=== PATIENT | male | born 1950 | race Caucasian/White ===

== ENCOUNTER 2018-01-22 23:03 | Observation (INO) ==
[2018-01-22] MEDS ORDERED: 0.9 % Sodium Chloride 500 ML IVC ONE (23:12)
[2018-01-22] MEDS ORDERED: Nitroglycerin 0.4 MG TAB.SUBL SL PRN (23:16)
--- NOTE | 2018-01-22 23:16 | Emergency Department Note ---
Disposition Clinical Impression: Atrial fibrillation with RVR Chest pain Qualifiers: Chest pain type: chest pain due to myocardial ischemia Ischemic chest pain type: unstable angina pectoris Qualified Code(s): I20.0 - Unstable angina Disposition: Admitted As Inpatient Condition: Fair Time of Disposition: 00:30 Chest Pain HPI - General Chief Complaint: ED Chest Pain Stated Complaint: CP Time Seen by Provider: 01/22/18 23:12 Source: patient, family Mode of arrival: wheelchair Limitations: no limitations Vital Signs Reviewed: Yes Nursing Notes Reviewed: Yes - History of Present Illness HPI Narrative: 67-year-old male penis for evaluation of chest pain. Patient does have a history of hypertension, diabetes, A. fib as well as CAD with multiple stents. Patient states he developed retrosternal chest pain with radiation to his left shoulder that occurred 2100 this evening. Following that the patient noted that he went into A. fib. Patient states that he does have known A. fib. Notes some diaphoresis initially. No nausea or vomiting. States his symptoms to prior with his heart attacks in the past. Patient denies any fevers or cough. States he is on Eliquis. States he took 3 nitroglycerin prior to arrival and did not improve his pain. Severity scale (1-10): 6 - Related Data Home Medications Medication Instructions Recorded Confirmed Losartan [Cozaar] 25 mg PO DAILY 02/14/15 01/23/18 Metoprolol [Lopressor] 50 mg PO BID 02/14/15 01/23/18 Omeprazole [PriLOSEC] 20 mg PO HS 02/14/15 01/23/18 Pregabalin [Lyrica] 225 mg PO BID 02/14/15 01/23/18 Rosuvastatin [Crestor] 40 mg PO HS 02/14/15 01/23/18 TraMADol [Ultram] 50 mg PO TID 02/14/15 01/23/18 Loratadine 10 mg PO DAILY 05/14/15 01/23/18 Multivitamin 1 tab PO DAILY 05/14/15 01/23/18 Apixaban [Eliquis] 2.5 mg PO BID 01/23/18 01/23/18 Lantus 44 units SQ QAM 01/23/18 01/23/18 Previous Rx's Medication Instructions Recorded Clopidogrel [Plavix] 75 mg PO DAILY #30 tablet 02/17/15 Allergies Allergy/AdvReac Type Severity Reaction Status Date / Time glipizide AdvReac Gastrointestinal Verified 05/14/15 09:57 Upset isosorbide AdvReac Gastrointestinal Verified 05/14/15 09:57 Upset metformin AdvReac Gastrointestinal Verified 05/14/15 09:57 Upset All systems ED: reviewed and negative except as stated. Constitutional: Denies: fever Cardiovascular: Reports: chest pain, palpitations Respiratory: Denies: cough, dyspnea Gastrointestinal: Denies: abdominal pain, nausea, vomiting, diarrhea Chest Pain PMH - Past Medical History Medical history: Reports: arthritis, coronary artery disease, diabetes, GERD, hyperlipidemia, hypertension, myocardial infarction Surgical history: Reports: angioplasty/stent (PCI w/ & stents total; [facility] catheterizations, multiple), arthroscopy (bilateral shoulders), orthopedic, other, vasectomy, other (dental surgery) Psychiatric history: Reports: no psych history - Social History Smoking Status: Former smoker Alcohol use: Reports: none Drug use: Reports: none Physical Exam - General Limitations: no limitations General appearance: alert, other (Appears uncomfortable) - Head Head exam: atraumatic, normocephalic, normal inspection - Eye Eye exam: Present: normal appearance, PERRL, EOMI - ENT ENT exam: normal exam, normal oropharynx, mucous membranes moist - Neck Neck exam: Present: normal inspection - Chest Chest inspection: Present: normal inspection, symmetric chest wall rise - Respiratory Respiratory exam: Present: normal lung sounds bilaterally. Absent: respiratory distress - Cardiovascular Cardiovascular exam: Present: tachycardia, irregular rhythm. Absent: systolic murmur - Abdominal Exam Abdominal exam: Present: soft, Non-Tender - Extremities Exam Extremities exam: Present: normal inspection. Absent: pedal edema - Expanded Lower Extremity Exam Neurovascular/Tendon exam: Present: normal capillary refill - Back Exam Back exam: Present: normal inspection - Neurological Exam Neurological exam: Present: alert, oriented X3 - Skin Skin exam: Present: warm, dry, intact, normal color Course Course Narrative: Patient seen and examined. Patient appears to be in A. fib RVR with a heart rate in the 160s. Patient's blood pressure stable. Patient will be evaluated with basic labs, chest x-ray EKG troponin. Patient will be rate controlled with diltiazem. Disposition admission. - Reevaluation(s) Reevaluation #1: Patient seen and examined. Patient's heart rate is improving. Still continue to be irregular at a rate of 110. Patient did receive one nitroglycerin. States his pain is a 1 out of 10. Patient's resting comfortably. Vital stable. Awaiting troponin. Time: 00:04 Reevaluation #2: Repeat EKG shows A. fib RVR rate of 131. Patient does have T-wave inversions in aVR. ST depressions from prior EKGs have resolved. No ST elevation. Time: 00:06 Reevaluation #3: Repeat EKG shows normal sinus rhythm at a rate of 93. Normal axis Time: 00:08 Vital Signs Temperature 98.5 F 01/22/18 23:05 Pulse Rate 160 01/22/18 23:05 Respiratory Rate 26 01/22/18 23:05 Blood Pressure 138/104 01/22/18 23:05 O2 Sat by Pulse Oximetry 100 01/22/18 23:05 Temperature 98.5 F 01/22/18 23:05 Pulse Rate 94 01/23/18 00:17 Respiratory Rate 18 01/23/18 00:17 Blood Pressure 111/82 01/23/18 00:17 O2 Sat by Pulse Oximetry 99 01/23/18 00:17 Oxygen Delivery Oxygen Delivery Nasal Cannula Chest Pain - [facility] Narrative Medical decision making narrative: Patient presents for evaluation of chest pain and A. fib. Patient does have known A. fib on Eliquis. Does have known coronary artery disease. Patient's triage vitals showed A. fib RVR and heart rate in the 160s. Patient was given Cardizem in improvement of his heart rate as well as chest pain. Patient also received 1 nitroglycerin. Patient got relief with interventions provided. Patient had labs which shows no significant acute clinical abnormalities. Patient is already anticoagulated on Eliquis. Patient will be admitted to the hospital service for continued cardiopulmonary monitoring and evaluation. Patient will control with that plan of care. - Lab Data Lab results reviewed: Yes I reviewed the patient's lab results. Result diagrams: 01/23/18 04:55 01/23/18 04:55 Lab Results 01/22/18 01/22/18 01/22/18 Range/Units 23:12 23:12 23:15 WBC 8.6 (4.3-11.1) K/mcL RBC 5.23 (4.19-5.50) M/mcL Hgb 15.4 (12.9-16.9) g/dL Hct 45.0 (37.5-50.1) % MCV 86.0 (83.0-100.0) fL MCH 29.4 (28.0-33.3) pg MCHC 34.2 (31.6-35.5) g/dL RDW 12.7 (11.5-14.5) % Plt Count 151 (140-400) K/mcL MPV 11.3 (9.4-12.4) fL Immature Gran % 0.2 (0-4) % Seg Neutrophils % 50.3 % Lymphocytes % 38.1 % Monocytes % 8.7 % Eosinophils % 2.0 % Basophils % 0.7 % Neutrophils # 4.3 (1.6-8.9) K/mcL Lymphocytes # 3.3 (0.6-4.6) K/mcL Monocytes # 0.7 (0.0-1.3) K/mcL Eosinophils # 0.2 (0.0-0.6) K/mcL Basophils # 0.1 (0.0-0.2) K/mcL PT 11.6 (9.4-12.1) Seconds INR 1.0 APTT 40.1 H (26.0-36.0) Seconds Sodium (136-145) mEq/L Potassium (3.5-5.1) mEq/L Chloride (98-107) mEq/L Carbon Dioxide (23-29) mEq/L BUN (8-23) mg/dL Creatinine (0.70-1.30) mg/dL Est GFR ( Amer) (> 60) Est GFR (Non-Af Amer) (> 60) BUN/Creatinine Ratio (6-26) Glucose (70-105) mg/dL Calculated Osmolality (280-300) Calcium (8.6-10.3) mg/dL Phosphorus (2.7-4.5) mg/dL Magnesium (1.6-2.6) mg/dL Troponin I (< 0.04) ng/mL B-Natriuretic Peptide 35 (Less than 100) pg/mL 01/22/18 Range/Units 23:22 WBC (4.3-11.1) K/mcL RBC (4.19-5.50) M/mcL Hgb (12.9-16.9) g/dL Hct (37.5-50.1) % MCV (83.0-100.0) fL MCH (28.0-33.3) pg MCHC (31.6-35.5) g/dL RDW (11.5-14.5) % Plt Count (140-400) K/mcL MPV (9.4-12.4) fL Immature Gran % (0-4) % Seg Neutrophils % % Lymphocytes % % Monocytes % % Eosinophils % % Basophils % % Neutrophils # (1.6-8.9) K/mcL Lymphocytes # (0.6-4.6) K/mcL Monocytes # (0.0-1.3) K/mcL Eosinophils # (0.0-0.6) K/mcL Basophils # (0.0-0.2) K/mcL PT (9.4-12.1) Seconds INR APTT (26.0-36.0) Seconds Sodium 140 (136-145) mEq/L Potassium 3.9 (3.5-5.1) mEq/L Chloride 102 (98-107) mEq/L Carbon Dioxide 28 (23-29) mEq/L BUN 11 (8-23) mg/dL Creatinine 1.20 (0.70-1.30) mg/dL Est GFR ( Amer) > 60 (> 60) Est GFR (Non-Af Amer) > 60 (> 60) BUN/Creatinine Ratio 9 (6-26) Glucose 297 H (70-105) mg/dL Calculated Osmolality 300 (280-300) Calcium 10.0 (8.6-10.3) mg/dL Phosphorus 2.0 L (2.7-4.5) mg/dL Magnesium 2.1 (1.6-2.6) mg/dL Troponin I < 0.03 (< 0.04) ng/mL B-Natriuretic Peptide (Less than 100) pg/mL - Radiology Data Radiology results reviewed: Yes I reviewed the patient's radiology results. Chest X-Ray 01/22/18 23:12 IMPRESSION: Stable portable study. D/ / Kandi Rosas Cha, MD / Kandi Rosas Cha, MD Interpreting Provider: Kandi Rosas Cha, MD - EKG Data EKG attestation: Yes I reviewed and interpreted this EKG. Rate: tachycardia Rhythm: A.Fib Dudley/QRS: normal ST segment depression in: I, II, v4, v5 When compared to previous EKG there are: changes noted Interpretation: nonspecific ST-T wave changes Heart Score - Score History: Moderately Suspicious EKG: Non Specific repolarisation Disturbance Age: Greater than 65 Risk Factors: Equal/Greater than 3 risk factor or history of atherosclerotic disease Troponin: Less than normal limit HEART Score Total: 6 S.B.A.R. - S.B.A.R. Situation: Demographics Background: Presenting Complaint Assessment: Vital Signs, Course and respsone to treatment, Patient/Family Expectation Recommendation: Barrier(s) to disposition, Recommendation based on pending studies, treatments, or consults S.B.A.R. Report Given to: Dr. Watkins S.B.A.RIrma Repor Time: 00:31 Attestation Statement - Attestation Attestation: I examined this patient and my medical decision-making was reviewed with the Resident Physician. I agree with the documented findings, disposition and keagan tment plan as described except to the extent set forth below. Patient with atypical chest pain. Heart score is greater than 3. Initial cardiac biomarkers are negative. We will admit for trending of troponins, cardiac consultation.
[2018-01-22 23:29] LABS: Basophils # 0.1 K/mcL (0.0-0.2); Basophils % 0.7 %; Eosinophils # 0.2 K/mcL (0.0-0.6); Hemoglobin 15.4 g/dL (12.9-16.9); Immature Granulocytes % 0.2 % (0-4); Lymphocytes # 3.3 K/mcL (0.6-4.6); Lymphocytes % 38.1 %; Mean Corpuscular HGB Conc 34.2 g/dL (31.6-35.5); Mean Corpuscular Hemoglobin 29.4 pg (28.0-33.3); Mean Platelet Volume 11.3 fL (9.4-12.4); Monocytes # 0.7 K/mcL (0.0-1.3); Monocytes % 8.7 %; Neutrophils # 4.3 K/mcL (1.6-8.9); Platelet Count 151 K/mcL (140-400); Red Blood Count 5.23 M/mcL (4.19-5.50); Red Cell Distribution Width 12.7 % (11.5-14.5); Segmented Neutrophils % 50.3 %
[2018-01-22 23:41] LABS: Prothrombin Time 11.6 Seconds (9.4-12.1)
[2018-01-22 23:43] LABS: Activated Partial Thrombo Time 40.1 Seconds (26.0-36.0)
[2018-01-22 23:55] LABS: BUN/Creatinine Ratio 9 (6-26); Blood Urea Nitrogen 11 mg/dL (8-23); Carbon Dioxide 28 mEq/L (23-29); Chloride 102 mEq/L (98-107); Glucose 297 mg/dL (70-105); Magnesium 2.1 mg/dL (1.6-2.6); Osmolality,Calculated 300 (280-300); Potassium 3.9 mEq/L (3.5-5.1); Sodium 140 mEq/L (136-145); eGFR For Non-African Americans > 60 (> 60)
[2018-01-23 00:11] LABS: Troponin I < 0.03 ng/mL (< 0.04)
[2018-01-23] MEDS ORDERED: Naloxone 0.4 MG/ML INJ IVP PRN (04:22)
[2018-01-23] MEDS ORDERED: Acetaminophen 325 MG TABLET PO PRN (04:22)
[2018-01-23] MEDS ORDERED: *HR* Dextrose 50 % in Water (Syg) 50 ML SYRINGE IVP PRN (04:22)
[2018-01-23] MEDS ORDERED: D5% in Water 1,000 ML IVC PRN (04:22)
[2018-01-23] MEDS ORDERED: Dextrose Gel 15 GM/37.5 ML TUBE PO PRN ×2 (04:22)
[2018-01-23] MEDS ORDERED: 0.9 % Sodium Chloride w KCl 20 MEQ/1,000 ML MLS IVC SCH (04:30)
[2018-01-23 05:12] LABS: Basophils # 0.1 K/mcL (0.0-0.2); Basophils % 0.8 %; Eosinophils # 0.2 K/mcL (0.0-0.6); Eosinophils % 2.9 %; Hematocrit 42.6 % (37.5-50.1); Hemoglobin 14.7 g/dL (12.9-16.9); Immature Granulocytes % 0.5 % (0-4); Lymphocytes % 26.3 %; Mean Corpuscular HGB Conc 34.5 g/dL (31.6-35.5); Mean Corpuscular Hemoglobin 30.1 pg (28.0-33.3); Mean Corpuscular Volume 87.3 fL (83.0-100.0); Mean Platelet Volume 11.8 fL (9.4-12.4); Monocytes # 0.7 K/mcL (0.0-1.3); Monocytes % 8.9 %; Neutrophils # 4.6 K/mcL (1.6-8.9); Nucleated Red Blood Cells 0.5 /100 WBC (0); Platelet Count 133 K/mcL (140-400); Red Blood Count 4.88 M/mcL (4.19-5.50); Red Cell Distribution Width 12.6 % (11.5-14.5); Segmented Neutrophils % 60.6 %
[2018-01-23 05:28] LABS: Alanine Aminotransferase 21 Units/L (7-52); Albumin 3.9 g/dL (3.5-5.7); Albumin/Globulin Ratio 1.9 (1.1-2.2); Alkaline Phosphatase 51 Units/L (34-104); Aspartate Amino Transferase 22 Units/L (13-39); BUN/Creatinine Ratio 9 (6-26); Bilirubin,Total 0.3 mg/dL (0.3-1.0); Blood Urea Nitrogen 10 mg/dL (8-23); Calcium 9.3 mg/dL (8.6-10.3); Carbon Dioxide 26 mEq/L (23-29); Chloride 108 mEq/L (98-107); Chol/HDL Ratio 3.4 (0-4.9); Cholesterol 104 mg/dL (< 200); Globulin 2.1 g/dL (2.4-3.5); Glucose 237 mg/dL (70-105); HDL Cholesterol 31 mg/dL (40-59); LDL Cholesterol,Calculated 45 mg/dL (0-99); Magnesium 2.2 mg/dL (1.6-2.6); Osmolality,Calculated 299 (280-300); Potassium 4.4 mEq/L (3.5-5.1); Sodium 141 mEq/L (136-145); Triglycerides 141 mg/dL (< 150); eGFR For Non-African Americans > 60 (> 60)
--- NOTE | 2018-01-23 05:34 | Internal Med History&Physical ---
Date of Encounter: 01/23/18 Time of Encounter: 03:50 Internal Medicine - H&P: HPI Chief complaint: chest pain; atrial fibrillation Admitted From: Emergency Dept Plans for Post Hospital Care: Home History of present illness: Mr. Seymour is a 67 year old male who presents to the ER tonight with complaints of substernal chest pain and pressure, diaphoresis, shortness of breath, and palpitations. He came to the ER and was noted to be in atrial fibrillation with rapid ventricular response. He was given a dose of Cardizem IV and then placed on Cardizem drip. He converted to normal sinus rhythm shortly thereafter and has remained in normal rhythm ever since. Chest pain is now gone. He states the pain is very similar and identical to his prior chest pain when he had his myocardial infarction. However, this pain was more intense and severe. He has had episodes of atrial fibrillation in the past, but he has never had chest pain with his paroxysmal atrial fibrillation. Patient has known coronary artery disease and has a total of 7 stents. His last heart catheterization was over 2 - 3 years ago. Patient has known paroxysmal atrial fibrillation, but he usually runs in normal sinus rhythm. Presently, patient feels well and has no complaints. He denies any fevers, cough, vomiting, diarrhea, dysuria, or abdominal pain. He states the symptoms he had awakened him from sleep. He is resting comfortably now and has no complaints at this time. Past Med Surg Social Fam HX - Past Medical History Attestation: Yes The following information was validated with the patient. Source: patient, old records reviewed Medical history: arthritis, coronary artery disease, diabetes, GERD, hyperlip idemia, hypertension, myocardial infarction Additional medical history: cardiac stents (7) Psychiatric history: no psych history - Past Surgical History Surgical History: angioplasty/stent, arthroscopy, orthopedic, other, vasectomy Additional surgical history: BILATERAL SHOULDER SX - Social History Smoking Status: Former smoker Smokeless Tobacco Status: No Alcohol use: none Drug use: none Current living situation: Home, With Family Activity Level: Independent ambulation Recent Out of Country Travel Within the Last 8 Weeks: No - Family History Father Adopted: No Family Member Ethnicity: Non- Living Status: Hx Family Cardiac Disorders: Yes (CABG's) Hx Family Respiratory Disorders: No Hx Family Cancer: Yes (prostate) Hx Family GI Disorders: No Hx Family Endocrine Disorder: Yes (DM) Hx Family Neuromuscular Disorders: No Hx Family Neurologic Disorders: No Hx Family HEENT Disorders: No Hx Family Autoimmune Disorders: No Mother Living Status: Still Living Hx Family Cardiac Disorders: Yes (11 STENTS) Hx Family Endocrine Disorder: Yes (DM) Internal Medicine - H&P: Meds Losartan [Cozaar] 25 mg PO DAILY 02/14/15 [History] Metoprolol [Lopressor] 50 mg PO BID 02/14/15 [History] Omeprazole [PriLOSEC] 20 mg PO HS 02/14/15 [History] Pregabalin [Lyrica] 225 mg PO BID 02/14/15 [History] Rosuvastatin [Crestor] 40 mg PO HS 02/14/15 [History] TraMADol [Ultram] 50 mg PO TID 02/14/15 [History] Clopidogrel [Plavix] 75 mg PO DAILY #30 tablet 02/17/15 [Rx] Loratadine 10 mg PO DAILY 05/14/15 [History] Multivitamin 1 tab PO DAILY 05/14/15 [History] Apixaban [Eliquis] 2.5 mg PO BID 01/23/18 [History] Lantus 44 units SQ QAM 01/23/18 [History] Allergy/AdvReac Type Severity Reaction Status Date / Time glipizide AdvReac Gastrointestinal Verified 05/14/15 09:57 Upset isosorbide AdvReac Gastrointestinal Verified 05/14/15 09:57 Upset metformin AdvReac Gastrointestinal Verified 05/14/15 09:57 Upset - Constitutional Constitutional: no chills, no fever(s), no night sweats - EENT Eyes: no blurry vision, no change in vision Ears: no ear pain, no tinnitus Nose, mouth and throat: no nasal congestion, no sinus pressure, no sore throat - Cardiovascular Cardiovascular ROS IM: chest pain, diaphoresis, dyspnea, irregular heart rhythm, palpitations, no syncope - Respiratory Respiratory: no cough, no hemoptysis, no chest congestion, no excessive phlegm production, no change in phlegm color - Gastrointestinal Gastrointestinal: no abdominal pain, no diarrhea, no hematemesis, no hematochezia, no melena, no vomiting - Genitourinary Genitourinary ROS male: no dysuria, no flank pain, no hematuria - Musculoskeletal Musculoskeletal ROS IM: no arthralgias, no back pain - Integumentary Integumentary IM: no rash, no jaundice - Neurological Neurological ROS: no dizziness, no focal weakness, no frequent falls, no headache(s) - Psychiatric Psychiatric: no anxiety, no depression - Endocrine Endocrine IM: no polydipsia, no polyuria - Hematologic/Lymphatic Hematologic/Lymphatic: easy bruising - Allergic/Immunologic Allergic/Immunologic: no wheezing, no GI upset with certain foods - Constitutional Vitals: Temp Pulse Resp BP Pulse Ox 97.5 F L 73 14 173/76 96 01/23/18 04:22 01/23/18 04:22 01/23/18 04:22 01/23/18 04:22 01/23/18 04:22 General appearance: Present: cooperative, A&O X 3, pleasant, no acute distress, answers questions appropriately Exam: see below - Head Head exam: Present: atraumatic, normal inspection - Eye Eye exam: Present: EOMI, PERRL. Absent: scleral icterus Pupils: Present: normal accommodation - ENT ENT exam: Present: mucous membranes dry, normal exam, normal oropharynx - Neck Neck exam general surgery: Present: full ROM, supple. Absent: tenderness, nuchal rigidity, thyromegaly - Respiratory Respiratory exam: Present: CTAB. Absent: chest wall tenderness, rales, rhonchi, wheezes - Cardiovascular Cardiovascular exam: Present: RRR, +S1, +S2. Absent: diastolic murmur, systolic murmur - GI/Abdominal GI/Abdominal exam: Present: normal bowel sounds, soft. Absent: hepatomegaly, mass, splenomegaly, tenderness - Extremities Exam Extremities exam: Present: warm, radial pulses palpable and symmetrical. Absent: calf tenderness, pedal edema, tenderness - Back Exam Back exam: Absent: CVA tenderness (L), CVA tenderness (R) - Neurological Exam Neurological exam: Present: alert, CN II-XII intact, oriented X3, no focal deficits - Psychiatric Psychiatric exam: Present: normal affect, normal mood - Skin Skin exam: Present: dry, warm. Absent: rash Internal Med - H&P Results - Labs CBC & Chem 7: 01/23/18 04:55 01/23/18 04:55 Labs: Short CBC 01/22/18 01/23/18 Range/Units 23:15 04:55 WBC 8.6 7.5 (4.3-11.1) K/mcL Hgb 15.4 14.7 (12.9-16.9) g/dL Hct 45.0 42.6 (37.5-50.1) % Plt Count 151 133 L (140-400) K/mcL Neutrophils # 4.3 4.6 (1.6-8.9) K/mcL BMP 01/22/18 01/23/18 23:22 04:55 Sodium 140 141 Potassium 3.9 4.4 Chloride 102 108 H Carbon Dioxide 28 26 BUN 11 10 Creatinine 1.20 1.13 Glucose 297 H 237 H Calcium 10.0 9.3 Cardiac Enzymes 01/22/18 Range/Units 23:22 Troponin I < 0.03 (< 0.04) ng/mL Liver Function 01/23/18 Range/Units 04:55 Total Bilirubin 0.3 (0.3-1.0) mg/dL AST 22 (13-39) Units/L ALT 21 (7-52) Units/L Alkaline Phosphatase 51 (34-104) Units/L Albumin 3.9 (3.5-5.7) g/dL - EKG Data -: EKG Interpreted by Myself - EKG Data Prior EKG available for review: yes When compared to previous EKG: there are significant changes EKG comments: 01/23/18 05:45 atrial fibrillation w RVR - Impressions ITS Impressions Chest X-Ray 01/22/18 23:12 IMPRESSION: Stable portable study. D/ / Kandi Rosas Cha, MD / Kandi Rosas Cha, MD Interpreting Provider: Kandi Rosas Cha, MD - Diagnostic Studies Chest x-ray Status: image reviewed by me (negative) - Assessment and plan (1) Atrial fibrillation with RVR Current Visit: Yes Status: Acute Assessment and plan: 1. Resolved; currently in NSR. 2. Wean Cardizem drip. 3. Monitor and correct electrolytes as necessary. 4. Trend troponins and EKG's. 5. Consult cardiology as I am concerned there is an ischemic etiology to atrial fibrillation. (2) Chest pain Current Visit: Yes Status: Acute Assessment and plan: 1. Will trend troponins and EKG's. 2. Will order ECHO. 3. Consult cardiology. Patient with known CAD now with atrial fibrillation w RVR after sudden onset of chest pain in sleep. Currently pain free. I favor C to rule out ischemic etiology, but I defer to cardiology. 4. Continue home meds as appropriate. Qualifiers: Chest pain type: chest pain due to myocardial ischemia Ischemic chest pain type: unstable angina pectoris Qualified Code(s): I20.0 - Unstable angina (3) Hypertension Current Visit: Yes Status: Chronic Assessment and plan: 1. Continue home meds as appropriate. 2. Monitor and adjust BP meds as necessary. Qualifiers: Hypertension type: essential hypertension Qualified Code(s): I10 - Essential (primary) hypertension (4) Diabetes mellitus type 2 with complications Current Visit: Yes Status: Chronic Assessment and plan: 1. Will place on SSI while npo. 2. Resume Lantus when able to eat. 3. Monitor glucose and adjust insulin as necessary. 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 On home dose of Eliquis.
[2018-01-23] MEDS ORDERED: 0.9 % Sodium Chloride 1,000 ML IVC SCH (07:00)
[2018-01-23] MEDS ORDERED: Pregabalin 75 MG CAPSULE PO SCH (09:00)
[2018-01-23] MEDS ORDERED: Apixaban 5 MG TABLET PO SCH ×2 (09:00→21:00)
[2018-01-23] MEDS ORDERED: Multivit/Ca/Min/Fe/FA 1 TAB TABLET PO SCH (09:00)
[2018-01-23] MEDS ORDERED: Loratadine 10 MG TABLET PO SCH (09:00)
--- NOTE | 2018-01-23 09:46 | Event Note ---
Date of Encounter: 01/23/18 Time of Encounter: 09:40 Seen and Assesed. Agree with plan per night team. Being managed for: 1. Chest pain with CAd r/o ACS. F/u 2D echo. Obtain stress test. Cardio recs appreciated 2. Afib with RVR. Continue eliquis and metoprolol
[2018-01-23] MEDS ORDERED: Diltiazem CD (24hr) 120 MG CAPSULE PO SCH (10:30)
[2018-01-23] MEDS: traMADol 50 MG TABLET PO SCH ×2 (10:41→14:47)
[2018-01-23] MEDS: Insulin LISPRO 300 UNITS/3 ML VIAL SQ SCH ×3 (10:42→14:31)
--- NOTE | 2018-01-23 11:23 | Cardiology Consult Note ---
Addendum entered and electronically signed by Carlos Bang CNP 01/23/18 14:35: TTE shows preserved EF. He remains in NSR. Continue cardizem, metoprolol, and eliquis. If stress test is normal cardiology will sign off and f/u out-pt. Original Note: <Carlos Bang - Last Filed: 01/23/18 10:05> Date of Encounter: 01/23/18 Time of Encounter: 10:05 Assessment and Plan (1) Atrial fibrillation with RVR Current Visit: Yes Status: Acute Presented with atrial fibrillation with RVR. Reports h/o afib. Converted to NSR on cardizem gtt. Will convert to oral. On eliquis. Patient said he did not remember dose. Recommend 5 mg BID. Will check TTE. Check TSH. (2) Chest pain Current Visit: Yes Status: Acute C/o chest pain that appeared to correlate with his afib. Chest pain resolved after converting to NSR per ED. He is concerned due to chest pain being similar to previous IA. Troponin 0.03, 0.04 not diagnostic for ACS in the setting of atrial fibrillation with RVR. EKG with no ischemic changes. Trend troponin. Check TTE. We will obtain recirds from [facility]. He thinks he had a stress test this year. He is currently pain free. Qualifiers: Chest pain type: chest pain due to myocardial ischemia Ischemic chest pain type: unstable angina pectoris Qualified Code(s): I20.0 - Unstable angina (3) Coronary artery disease Current Visit: No Status: Chronic H/o IA and multiple PCI. Last [facility] 2014. [facility] 02/2015 revealed EF 50%, 95% stenosis in the proximal LAD and a PTCA was completed with good results, 90% stenosis in the mid LAD and a drug-eluting stent and PTCA was used in that area, 99% stenosis in the distal LAD that was not amenable to PCI. There is a 30% stenosis in the proximal circumflex. There was a patent stent in the RCA. There is a 90% stenosis in the RPAV. Continue plavix, statin, and bb. He is not on asa to avoid triple therapy. He is on eliquis for afib. Qualifiers: Coronary Disease-Associated Artery/Lesion type: [place] artery [place] vs. transplanted heart: [place] heart Associated angina: with stable angina Qualified Code(s): I25.118 - Atherosclerotic heart disease of [place] coronary artery with other forms of angina pectoris Discussion w patient/family: The assessment and plan as outlined above was discussed with the patient and/or family members who expressed understanding and agreement. All questions were answered. Thank you for involving us in the care of your patient. Please call with any questions. History of Present Illness Consult date: 01/23/18 Requesting physician: Howie Watkins Consult reason: Chest pain, afib Chief complaint: Chest pain History of present illness: Mr. Seymour is a 67 year old male with past medical history of CAD s/p multipl e PCI, atrial fibrillation on eliquis, HTN, HLD, and DM. He presents with one and a half hours of chest pain radiating to his left shoulder. He presented to the ED and was found to have atrial fibrillation with RVR. He was given cardizem bolus and started on cardizem gtt. He did convert to NSR overnight. He is now chest pain free. He states his chest pain was like his previous IA but more severe and he also c/o headache. He states that he followed with cardiology at the [facility] earlier this year and underwent testing including stress test. Past Med Surg Social Fam HX - Past Medical History Attestation: Yes The following information was validated with the patient. Source: patient Medical history: arthritis, coronary artery disease, diabetes, GERD, hyperlipidemia, hypertension, myocardial infarction Additional medical history: cardiac stents (7) Psychiatric history: no psych history - Past Surgical History Surgical History: angioplasty/stent (PCI w/ & stents total; [facility] catheterizations , multiple), arthroscopy (bilateral shoulders), orthopedic, other, vasectomy, other (dental surgery) Additional surgical history: BILATERAL SHOULDER SX - Social History Smoking Status: Former smoker Smokeless Tobacco Status: No Alcohol use: none Drug use: none - Family History Father Adopted: No Family Member Ethnicity: Non- Living Status: Hx Family Cardiac Disorders: Yes (CABG's) Hx Family Respiratory Disorders: No Hx Family Cancer: Yes (prostate) Hx Family GI Disorders: No Hx Family Endocrine Disorder: Yes (DM) Hx Family Neuromuscular Disorders: No Hx Family Neurologic Disorders: No Hx Family HEENT Disorders: No Hx Family Autoimmune Disorders: No Mother Living Status: Still Living Hx Family Cardiac Disorders: Yes (11 STENTS) Hx Family Endocrine Disorder: Yes (DM) Medications and Allergies Pregabalin [Lyrica] 225 mg PO BID 02/14/15 [History] RX: Omeprazole [PriLOSEC] 20 mg PO HS 02/14/15 [History] Rosuvastatin [Crestor] 40 mg PO HS 02/14/15 [History] RX: Clopidogrel [Plavix] 75 mg PO DAILY #30 tablet 02/17/15 [Rx] Multivitamin [One Daily Multivitamin] 1 each PO DAILY 05/14/15 [History] Apixaban [Eliquis] 5 mg PO BID 01/23/18 [History] Insulin Glargine,Hum.rec.anlog [Lantus Solostar] 46 unit SQ QAM 01/23/18 [History] Isosorbide MONOnitrate (24 HR) [Imdur] 30 mg PO DAILY 01/23/18 [History] Loratadine [Allergy Relief] 10 mg PO DAILY 01/23/18 [History] Losartan [Cozaar] 25 mg PO DAILY 01/23/18 [History] RX: Metoprolol Succinate 50 mg PO BID 01/23/18 [History] Tamsulosin HCl [Flomax] 0.4 mg PO DAILY 01/23/18 [History] Tramadol HCl [Ultram] 100 mg PO TID PRN 01/23/18 [History] Allergy/AdvReac Type Severity Reaction Status Date / Time glipizide AdvReac Gastrointestinal Verified 05/14/15 09:57 Upset isosorbide AdvReac Gastrointestinal Verified 05/14/15 09:57 Upset metformin AdvReac Gastrointestinal Verified 05/14/15 09:57 Upset All Systems Review: The remainder of the systems were reviewed and are negative Physical Examination Vital Signs, Last 4 Hours Temp Pulse Resp BP Pulse Ox 01/23/18 07:00 97.5 F L 58 17 114/71 97 General: Conversant, No Apparent Distress HEENT: Atraumatic, Normocephaly, Mucus Membranes Moist Neck: No JVD, Normal carotid pulses Cardiac: Reg Rate and Rhythm, Normal S1 and S2, No Murmur Lungs: Normal Breath Sounds, No Wheeze, Rales, Rhonchi Neuro: Alert and responsive, No focal deficits noted Abdomen: Soft, Non-Tender Skin: No rashes noted on visualized skin Musculoskeletal: No Chest Wall Tenderness Extremities: No Clubbing, No Cyanosis, No Edema, Normal Pulses Results 01/23/18 04:55 01/23/18 04:55 Lab Results 01/22/18 01/22/18 01/22/18 23:12 23:12 23:15 WBC 8.6 Hgb 15.4 Hct 45.0 Plt Count 151 INR 1.0 APTT 40.1 H Sodium Potassium Chloride Carbon Dioxide BUN Creatinine Glucose Calcium Magnesium Total Bilirubin AST ALT Alkaline Phosphatase Troponin I B-Natriuretic Peptide 35 01/22/18 01/23/18 01/23/18 23:22 04:55 04:55 WBC 7.5 Hgb 14.7 Hct 42.6 Plt Count 133 L INR APTT Sodium 140 141 Potassium 3.9 4.4 Chloride 102 108 H Carbon Dioxide 28 26 BUN 11 10 Creatinine 1.20 1.13 Glucose 297 H 237 H Calcium 10.0 9.3 Magnesium 2.1 2.2 Total Bilirubin 0.3 AST 22 ALT 21 Alkaline Phosphatase 51 Troponin I < 0.03 B-Natriuretic Peptide 01/23/18 04:55 WBC Hgb Hct Plt Count INR APTT Sodium Potassium Chloride Carbon Dioxide BUN Creatinine Glucose Calcium Magnesium Total Bilirubin AST ALT Alkaline Phosphatase Troponin I 0.04 H* B-Natriuretic Peptide - Imaging and Cardiology Echo: report reviewed Cardiac cath: report reviewed - EKG Interpretation EKG results cardiology: personally reviewed Consult Discharge Plan - Plan [facility]: [facility] Care Provider[facility] - <Misael Joseph - Last Filed: 01/23/18 15:23> - Attending Attestation I have personally performed a face to face evaluation on this patient. I have reviewed and agree with the care plan. History and Exam by me shows: 67-year-old male with known history of proximal atrial fibrillation on eliquis, coronary artery disease status post-PCI to proximal and mid LAD recently with distal diffuse disease of the LAD. Patient presents with ongoing chest pain found to be in atrial fibrillation with RVR but has also been having episodes of chest pain. He describes chest pain similar to his prior episode of IA. We will proceed with risk stratification noninvasively with a chemical stress test to rule out ischemia. Currently in normal sinus rhythm Assessment and Plan Discussion w patient/family: The assessment and plan as outlined above was discussed with the patient and/or family members who expressed understanding and agreement. All questions were answered. Thank you for involving us in the care of your patient. Please call with any questions. History of Present Illness History of present illness: Mr. Seymour is a 67 year old male All Systems Review: The remainder of the systems were reviewed and are negative Results 01/23/18 04:55 01/23/18 04:55 Lab Results 01/22/18 01/22/18 01/22/18 23:12 23:12 23:15 WBC 8.6 Hgb 15.4 Hct 45.0 Plt Count 151 INR 1.0 APTT 40.1 H Sodium Potassium Chloride Carbon Dioxide BUN Creatinine Glucose Calcium Magnesium Total Bilirubin AST ALT Alkaline Phosphatase Troponin I B-Natriuretic Peptide 35 TSH 01/22/18 01/23/18 01/23/18 23:22 04:55 04:55 WBC 7.5 Hgb 14.7 Hct 42.6 Plt Count 133 L INR APTT Sodium 140 141 Potassium 3.9 4.4 Chloride 102 108 H Carbon Dioxide 28 26 BUN 11 10 Creatinine 1.20 1.13 Glucose 297 H 237 H Calcium 10.0 9.3 Magnesium 2.1 2.2 Total Bilirubin 0.3 AST 22 ALT 21 Alkaline Phosphatase 51 Troponin I < 0.03 B-Natriuretic Peptide TSH 01/23/18 01/23/18 01/23/18 04:55 11:17 11:17 WBC Hgb Hct Plt Count INR APTT Sodium Potassium Chloride Carbon Dioxide BUN Creatinine Glucose Calcium Magnesium Total Bilirubin AST ALT Alkaline Phosphatase Troponin I 0.04 H* < 0.03 B-Natriuretic Peptide TSH 3.962
[2018-01-23] MEDS ORDERED: Regadenoson 0.4 MG/5 ML SYRINGE IVP ONE (12:21)
--- NOTE | 2018-01-23 16:32 | Discharge Summary ---
Orders not resulted at time of discharge: Pending orders 01/23/18 09:44 NM lyssa perf SPECT multi [NM] Routine 01/23/18 16:16 Troponin I Q6H Date of Encounter: 01/23/18 Time of Encounter: 16:00 - Discharge Diagnosis (1) Chest pain Priority: Primary Status: Acute Assessment and Plan: 67 year old male who presents to the ER tonight with complaints of substernal chest pain and pressure, diaphoresis, shortness of breath, and palpitations. He came to the ER and was noted to be in atrial fibrillation with rapid ventricular response. He was given a dose of Cardizem IV and then placed on Cardizem drip. He converted to normal sinus rhythm shortly thereafter and has remained in normal rhythm ever since He was assessed with chest pain r/o acute coronary syndrome and afib with RVR. He was successfully weaned off cardizem drip and transitioned to po cardizem. He was seen by cardiology and got a an echo and a nuclear stress test which both came back WNL. He was discharged in a stable condition. 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 Seymour is a 67 year old male - Time Spent with Patient Total time spent providing and/or coordinating discharge services: - Discharge Medications Prescriptions: Diltiazem CD (24hr) [Cardizem CD] 120 mg PO DAILY 30 Days #30 cap.er.24h Home Medications: Omeprazole [PriLOSEC] 20 mg PO HS 02/14/15 [History] Pregabalin [Lyrica] 225 mg PO BID 02/14/15 [History] Rosuvastatin [Crestor] 40 mg PO HS 02/14/15 [History] Clopidogrel [Plavix] 75 mg PO DAILY #30 tablet 02/17/15 [Rx] Multivitamin [One Daily Multivitamin] 1 each PO DAILY 05/14/15 [History] Apixaban [Eliquis] 5 mg PO BID 01/23/18 [History] Diltiazem CD (24hr) [Cardizem CD] 120 mg PO DAILY 30 Days #30 cap.er.24h 01/23/18 [Rx] Insulin Glargine,Hum.rec.anlog [Lantus Solostar] 46 unit SQ QAM 01/23/18 [History] Isosorbide MONOnitrate (24 HR) [Imdur] 30 mg PO DAILY 01/23/18 [History] Loratadine [Allergy Relief] 10 mg PO DAILY 01/23/18 [History] Losartan [Cozaar] 25 mg PO DAILY 01/23/18 [History] Metoprolol Succinate 50 mg PO BID 01/23/18 [History] Tamsulosin HCl [Flomax] 0.4 mg PO DAILY 01/23/18 [History] Tramadol HCl [Ultram] 100 mg PO TID PRN 01/23/18 [History] Allergies/Adverse Reactions: Allergy/AdvReac Type Severity Reaction Status Date / Time glipizide AdvReac Gastrointestinal Verified 05/14/15 09:57 Upset isosorbide AdvReac Gastrointestinal Verified 05/14/15 09:57 Upset metformin AdvReac Gastrointestinal Verified 05/14/15 09:57 Upset Date of admission: 01/23/18 01:23 Primary care physician: PCP [place] Consults: 01/23/18 04:24 Consult to Physician [CONS] Routine Consulting Provider: Misael Joseph Reason for Consult: chest pain; a fib/RVR; known CAD Call Completed: No - Constitutional Vitals: Temp Pulse Resp BP Pulse Ox 97.5 F L 58 17 114/71 97 01/23/18 07:00 01/23/18 07:00 01/23/18 07:00 01/23/18 07:00 01/23/18 07:00 General appearance: Present: cooperative, A&O X 3, pleasant, no acute distress, answers questions appropriately Exam: NAD - Head Head exam: Present: atraumatic, normocephalic - Eye Eye exam: Present: PERRL, conjuntiva pink, sclera anicteric Pupils: Present: PERRL - Neck Neck exam general surgery: Present: supple, trachea midline. Absent: lymphadenopathy - Respiratory Respiratory exam: Present: CTAB. Absent: accessory muscle use, rales, rhonchi, wheezes - Cardiovascular Cardiovascular exam: Present: RRR, +S1, +S2. Absent: diastolic murmur, gallop, rubs, systolic murmur - GI/Abdominal GI/Abdominal exam: Present: normal bowel sounds, soft, no peritoneal signs. Absent: distended, tenderness - Extremities Exam Extremities exam: Present: warm, radial pulses palpable and symmetrical. Absent: calf tenderness, cyanotic, pedal edema - Neurological Exam Neurological exam: Present: CN II-XII intact, oriented X3, no focal deficits. Absent: pronater drift, facial droop, speech deficit - Skin Skin exam: Present: dry, intact - Patient Status Disposition: Home, Self-Care Condition: Fair - Discharge Instructions Instructions: Diltiazem (By mouth), Myocardial Infarction (DC), Atrial Fibrillation (DC), Chest Pain (DC), Diabetes Mellitus Type 2 in Adults (DC), Chronic Hypertension (DC) [facility] - (pt will have to make [facility] appt office is closed)
[2018-01-23 16:40] VITALS: BP 135/83
--- NOTE | 2018-01-24 09:08 | Electrocardiograph Report ---
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
--- NOTE | 2018-01-26 16:18 | Electrocardiograph Report ---
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
--- NOTE | 2018-01-27 18:41 | Electrocardiograph Report ---
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
--- NOTE | 2018-01-27 18:52 | Electrocardiograph Report ---
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
== END 2018-01-23 17:51 | disposition home or self-care (01) ==
LOC: EMEROOARM 23:03 → 2NENU 23:03 → SUATTDRO 01-23 01:23 → 2NENU 01-23 01:56
PROVIDERS: ADMIT Pediatrics; ATTEND Student in an Organized Health Care Education/Training Program